=== PATIENT | female | born 1930 | race Caucasian/White ===

== ENCOUNTER 2017-03-18 08:30 | Inpatient (IN) | payer MEDICARE, BC ==
[2017-03-18 09:05] VITALS: BMI 17.6
[2017-03-24] MEDS ORDERED: CEFAZOLIN/Water 2 GM/20 ML SYRINGE ONE (08:08)
[2017-03-24] MEDS ORDERED: Tranexamic Acid 1,000 MG/100 ML BAG ONE ×2 (08:08→12:36)
[2017-03-24] MEDS ORDERED: diphenhydrAMINE 50 MG/ML VIAL IVP PRN (09:15)
[2017-03-24] MEDS ORDERED: Ondansetron HCl/PF 4 MG/2 ML Vial IVP PRN ×3 (09:15→12:19)
[2017-03-24] MEDS ORDERED: Promethazine HCl 25 MG/ML VIAL IM PRN ×2 (09:15→11:07)
[2017-03-24] MEDS ORDERED: Eucerin (Mineral Oil/Petrolatum,White) 30 gm Jar TOP PRN (09:15)
[2017-03-24] MEDS ORDERED: Zolpidem Tartrate 5 MG TAB PO PRN (09:15)
[2017-03-24] MEDS ORDERED: diphenhydrAMINE 25 MG CAP PO PRN ×2 (09:15→12:19)
[2017-03-24] MEDS ORDERED: Fentanyl/Bupivacaine 250 ML in Premix Bag 1 BAG EPIDURAL SCH (09:15)
[2017-03-24] MEDS ORDERED: HYDROcodone/Acetaminophen 5/325 mg Tablet PO PRN ×2 (09:15)
[2017-03-24] MEDS ORDERED: Naloxone HCl 0.4 mg/ml Vial IV PRN (09:15)
[2017-03-24] MEDS ORDERED: Naloxone HCl 0.4 mg/ml Vial IVP PRN (09:15)
[2017-03-24] MEDS ORDERED: traMADol HCl 50 MG TAB PO PRN ×3 (09:15→12:19)
[2017-03-24] MEDS ORDERED: diphenhydrAMINE 50 MG/ML VIAL IM PRN (09:15)
[2017-03-24] MEDS ORDERED: Promethazine HCl 25 MG SUPP PR PRN (09:15)
[2017-03-24] MEDS ORDERED: Neomycin-Polymyxin 1 ML AMP ONE ×2 (10:11)
[2017-03-24] MEDS ORDERED: Bupivacaine/Epinephrine 0.25% 30 ML VIAL ONE (10:22)
[2017-03-24] MEDS ORDERED: Fentanyl 100 MCG/2 ML VIAL ONE ×2 (10:24→13:06)
[2017-03-24] MEDS ORDERED: Promethazine HCl 25 MG/ML VIAL SLOW IVP PRN (11:07)
[2017-03-24] MEDS ORDERED: Acetaminophen/Codeine 30-300mg Tablet PO PRN (12:19)
[2017-03-24] MEDS ORDERED: Acetaminophen 325 MG TAB PO PRN (12:19)
[2017-03-24] MEDS ORDERED: Acetaminophen 1,000 MG in Premix Bag 1 BAG IVPB SCH (12:30)
[2017-03-24] MEDS ORDERED: Tranexamic Acid 1,000 MG in Sodium Chloride 0.9% 100 ML IVPB SCH (12:30)
[2017-03-24] MEDS ORDERED: Fentanyl/Bupivacaine 250 ML EPIDURAL ONE (12:50)
[2017-03-24] MEDS ORDERED: Morphine 2 mg/2ml in 0.9% NaCl PF SYRINGE SLOW IVP PRN (13:00)
[2017-03-24] MEDS ORDERED: Bupivacaine 0.25% HCL 30 ML VIAL ONE (13:01)
[2017-03-24] MEDS: Ketorolac Tromethamine 30 MG/ML VIAL IVP SCH ×3 (14:32→23:42)
[2017-03-24] MEDS: Sodium Chloride 0.9% 1,000 ML IV SCH (14:32)
--- NOTE | 2017-03-24 15:11 | RAD ---
TWO VIEWS RIGHT HIP: Date: 03-24-17 Comparison: None . History: Evaluate hip following arthroplasty. FINDINGS: Lateral cutaneous gerardo are present. There is a right total hip arthroplasty noted. There is post-o perative gas at the post-operative site. There is no evidence for hardware failure, fracture, or disl ocation. IMPRESSION: Findings consistent with recent right total hip arthroplasty. POS: [facility]
--- NOTE | 2017-03-24 15:21 | RAD ---
SINGLE AP VIEW OF LEFT HIP INTRAOPERATIVELY: DATE: 03/24/17. HISTORY: Hip fracture. FINDINGS: There are postsurgical changes related to placement of right total hip prosthesis. Acetabular compon ent as well as a femoral metallic devices noted in place. There is subcutaneous emphysema related to the postsurgical changes. IMPRESSION: Postsurgical changes related to placement of right total hip prosthesis. Correlation with intraopera tive findings is recommended. POS: [facility]
--- NOTE | 2017-03-24 15:43 | OP ---
DATE OF PROCEDURE: 03/24/2017 PREOPERATIVE DIAGNOSIS: Osteoarthritis, right hip. POSTOPERATIVE DIAGNOSIS: Osteoarthritis, right hip. PROCEDURE: Right total hip arthroplasty. ANESTHESIA: General. SURGEON: Juan Rubio M.D. COMMUNITY YOUTH SECRETARY: Nicolas Scott PA-C. COMPLICATIONS: None. CONDITION: Good. ESTIMATED BLOOD LOSS: 250 mL. DRAINS: None. TOURNIQUET: None. TECHNIQUE: Consent was obtained. The patient was taken to the operating room and placed in supine p osition. After adequate general anesthesia had been achieved, the patient was placed in a left later al decubitus position, axillary roll and hip positioner. The right hip was then examined and there w as approximately 1-2 cm shortening in the right lower extremity with approximately 10 degree flexion contracture of the hip. She had full flexion, abduction, rotation, and minor limitation. The right hip was then positioned, prepped and draped in usual sterile fashion. A limited posterolateral appro ach to the hip was performed. It was taken down to the subcutaneous tissues carefully exposing the g luteal fascia, this was split longitudinally. The piriformis short rotators were identified. Pirifo rmis was released from its posterior capsule and the posterior incision. Arthrotomy was performed. Hip dislocated without complication. The neck exposed and the head resected at appropriate level. T he femur was then prepared with sequential hand reamers and broaches up to a size 3. A size 3 trial was left in place and the acetabulum exposed. The labral tissue was debrided. The patient had compl ete chondral loss, but no significant erosive changes. Osteophytes removed and the reaming was start ed at 47 mm, it was taken up to 50 mm. A 50 mm Dynasty shell was then placed with two superior screw s. Good position and alignment was noted and excellent stability. The 15 degree liner was placed po sterior shortest neck with medium head. Hip was put through a range of motion. The patient had full flexion and extension. There was no significant instability through full range and no impingement. The radiographs showed good position and alignment of the implant, and the trials were then removed. The 15-degree liner was placed posterior superior and impacted. The size 3 Profemur Z stem was ins erted and the medium head was then impacted on the taper. Skin was reduced. Stability was excellent and leg lengths clinically equal. After copious irrigation and hemostasis obtained, the arthrotomy closed with #2 Mersilene and piriformis was also repaired with #2 Mersilene, the gluteal fascia with #2 Vicryl, the subcutaneous with 2-0 Vicryl, and the skin with gerardo. Sterile bulky dressing was a pplied and the patient was taken to recovery. Prognosis is good. GURINDER Wylie, was instrumental in positioning along with assisting in exposure and implantation of the total hip arthroplasty. He has specialized knowledge in joint arthroplasty and was beneficial an d safe execution of procedure.
[2017-03-24] MEDS ORDERED: Glycopyrrolate 0.2 MG/ML 5 ML SYRINGE ONE (16:14)
[2017-03-24] MEDS ORDERED: Propofol 200 MG/20 ML VIAL ONE (16:14)
[2017-03-24] MEDS ORDERED: Lidocaine 1% PF 5 ML VIAL ONE (16:14)
[2017-03-24] MEDS ORDERED: Ondansetron HCl/PF 4 MG/2 ML Vial ONE (16:14)
[2017-03-24] MEDS ORDERED: ePHEDrine/0.9% NaCl/PF SYRINGE 50 mg/10 ml ONE (16:14)
[2017-03-24] MEDS: CEFAZOLIN/Water 2 GM/20 ML SYRINGE SLOW IVP SCH ×2 (16:56→23:42)
--- NOTE | 2017-03-24 17:26 | CON ---
DATE OF CONSULTATION: 03/24/2017 REQUESTING PHYSICIAN: Juan Rubio M.D. PRIMARY CARE PHYSICIAN: Zoltan Sanchez M.D. REASON FOR CONSULTATION: Medical management, post right total hip arthroplasty. HISTORY OF PRESENT ILLNESS: Ms. Sharma is a very pleasant 86-year-old white female with history of dementia, hypertension, osteoarthritis, and depression who presents to the floor today postop from [facility] total hip arthroplasty by Dr. Rubio. She got a longstanding history of osteoarthritis, increasing pain and affecting her mobility and thus sent her for an elective right total hip arthroplasty done today. No new intraoperative complications. Postoperatively, she is very comfortable. She denies any chest pain, shortness of breath, no nausea or vomiting, no diarrhea or constipation. No fevers or chills. No cough or sputum production. No bleeding problems. She does have a fentanyl/bupivacaine pump in and appears comfortable at the moment. PAST MEDICAL HISTORY: 1. Dementia. 2. Hypertension, essential. 3. Osteoarthritis. 4. Depression. 5. Postmenopausal. PAST SURGICAL HISTORY: Hysterectomy more than 36 years ago, ovarian status unknown. HOME MEDICATIONS: 1. Aspirin 325 mg daily. 2. B12 1000 mcg. 3. Lisinopril 10 mg p.o. daily. 4. Namenda 2 mg p.o. daily. 5. Zoloft 100 mg p.o. daily. ALLERGIES: NKDA. FAMILY HISTORY: Negative for clotting or bleeding disorder. No immune dysfunction, no blood tumors. SOCIAL HISTORY: . She does not smoke, does not use drugs. Never used to either one. She do es have an occasional drink meaning 1-2 drinks 1 or 2 times a week. She does drink wine or rum and C elana. She has been to her of 36 years. He is at the bedside. Code status was discussed. She is a FULL CODE, she does have advanced directive and her is m edical power of divorce attorney. REVIEW OF SYSTEMS: A 10-point review of systems was performed, negative for all other systems except as stated per HPI. PHYSICAL EXAMINATION: VITAL SIGNS: Temperature current 97.0, pulse 66, blood pressure 98/64, respiratory rate 14, satting 94% on room air. GENERAL: She is awake. She is alert. She is oriented x3. She is a well-developed, well-nourished, thin elderly white female, appears to be in zero distress. HEENT: Normocephalic, atraumatic. Pupils equal, reactive bilaterally. Mucous membranes are moist, without visible lesions or thrush. NECK: Supple. There is no lymphadenopathy, JVD or thyromegaly. Normal carotid upstrokes without br uits. LUNGS: Clear to auscultation bilaterally. She has good air movement and symmetrical chest excursion . There are no wheezes, rales or rhonchi. No prolonged expiratory phase. CARDIOVASCULAR: She has normal S1, S2. No S3, S4. She has a quiet 2/6 systolic ejection murmur bes t heard over the right upper sternal border. There is no radiation. ABDOMEN: Soft, nontender, nondistended. No masses or organomegaly. EXTREMITIES: No cyanosis, no clubbing. No edema with 2+ peripheral pulses in dorsalis pedis and pos terior tibial arteries. SKIN: Warm, moist, and well perfused. She has a postop dressing over her right hip and an ice pack. This was not removed, but there is no bloody show or strike through. NEUROLOGIC: Cranial nerves II-XII are grossly intact. She has no focal deficits and 5/5 strength in all 4 extremities. MUSCULOSKELETAL: Normal to inspection. She is tender over the right hip. Deep palpation was not at tempted. The remainder of her joints appears uninflamed without any palpable effusions. LABORATORY DATA: Preop on 03/18/2017, her BMP is normal and CBC showed a white count of 5.3, hemoglo bin 11.5, hematocrit 34.1, platelets 241,000. INR is 1.0. Her GFR is calculated at 56. RADIOGRAPHIC STUDIES: She had a hip x-ray that shows her to be status post right total hip arthropla sty. ASSESSMENT AND PLAN: 1. Osteoarthritis, status post right total hip arthroplasty per Dr. Rubio. DVT prophylaxis per nd s team. 2. History of dementia, on Namenda, will continue. 3. Hypertension, lisinopril will continue. Watch renal function. 4. Osteoarthritis as above. 5. Depression, on Zoloft or sertraline. We will continue 100 mg daily. 6. Likely chronic kidney disease 3. Her GFR is 56 and she has a creatinine 0.95. Given her ratio i s calculated to GFR is less than 60, we will monitor kidney function very, very closely and adjust he r medicines as appropriate. Thank you very much for this consult. I will follow along with you.
[2017-03-24] MEDS: Cyanocobalamin (Vitamin B-12) 1,000 MCG TAB PO SCH (20:59)
[2017-03-25] MEDS: Sodium Chloride 0.9% 1,000 ML IV SCH ×2 (00:09→08:18)
[2017-03-25 06:16] LABS: Hematocrit 27.1 % (36.0-47.0); Mean Platelet Volume 7.5 fL (7.4-10.4); Red Blood Cell (RBC) Count 2.93 mill/uL (4.20-5.40); White Blood Cell (WBC) Count 7.7 thou/uL (4.8-10.8)
[2017-03-25 06:21] LABS: Anion Gap 8 mmol/L (10-20); BUN (Urea Nitrogen) 20 mg/dL (9.8-20.1); Calc. Creatinine Clearance 32 mL/min (70-130); Calcium 8.6 mg/dL (7.8-10.44); Carbon Dioxide 29 mmol/L (23-31); Chloride 106 mmol/L (98-107); Estimated GFR-MDRD 53
[2017-03-25] MEDS: Ketorolac Tromethamine 30 MG/ML VIAL IVP SCH ×4 (07:00→23:53)
[2017-03-25] MEDS: Lisinopril 10 MG TAB PO SCH ×2 (08:16→08:20)
[2017-03-25] MEDS: Ferrous Gluconate 324 MG TAB PO SCH ×2 (08:16→21:55)
[2017-03-25] MEDS: Senokot S 8.6-50 MG TAB PO SCH ×2 (08:16→21:55)
[2017-03-25] MEDS: Multivitamin W/ Minerals 1 TAB PO SCH (08:17)
[2017-03-25] MEDS: Aspirin 81 mg Enteric Coated Tablet PO SCH ×2 (08:17→21:55)
--- NOTE | 2017-03-25 13:14 | PDOC.PN ---
- Subjective Encounter Start Date: 03/25/17 Encounter Start Time: 10:[address] in [facility]. BP a little low today, lisinopril held. Colt CP or sOb, no N/V/d/C, no f/C. Denies dizziness, light headdedness. Hgb dropped from 11.5 to 8.7 10 point ROS performed and neg for all systems except as per HPI - Objective Resuscitation Status: full MAR Reviewed: Yes Vital Signs & Weight: Vital Signs (12 hours) Temp Pulse Resp BP BP Pulse Ox Pulse Ox 03/25/17 12:40 97.6 F 80 18 101/64 91 L 03/25/17 08:38 98/60 94 L 03/25/17 08:25 98.3 F 83 14 92/55 L 88 L 03/25/17 07:55 97.8 F 87 18 95 03/25/17 04:00 97.8 F 87 18 100/60 91 L Weight Admit Weight 106 lb Weight 106 lb I&O: 03/24/17 03/25/17 03/26/17 06:59 06:59 06:59 Intake Total 780.5 1572.5 Output Total 300 500 Balance 480.5 1072.5 Result Diagrams: 03/25/17 04:40 03/25/17 04:40 Radiology Reviewed by me: Yes EKG Reviewed by me: Yes Phys Exam - Physical Examination Constitutional: NAD HEENT: PERRLA, moist MMs, sclera anicteric, oral pharynx no lesions Neck: no nodes, no JVD, supple, full ROM Respiratory: no wheezing, no rales, no rhonchi, clear to auscultation bilateral Cardiovascular: RRR, no significant murmur, no rub Gastrointestinal: soft, non-tender, no distention, positive bowel sounds Musculoskeletal: no edema, pulses present Neurological: non-focal, normal sensation, moves all 4 limbs Lymphatic: no nodes Psychiatric: normal affect, A&O x 3 Skin: no rash, normal turgor, cap refill <2 seconds Dx/Plan (1) HTN (hypertension) Code(s): I10 - ESSENTIAL (PRIMARY) HYPERTENSION Status: Chronic Qualifiers: Hypertension type: essential hypertension Qualified Code(s): I10 - Essential (primary) hypertension Comment: home meds on hold today. (2) Dementia Code(s): F03.90 - UNSPECIFIED DEMENTIA WITHOUT BEHAVIORAL DISTURBANCE Status: Chronic Qualifiers: Dementia type: unspecified type Dementia behavioral disturbance: without behavioral disturbance Qualified Code(s): F03.90 - Unspecified dementia without behavioral disturbance Comment: on namenda. Continuing (3) CKD (chronic kidney disease) stage 3, GFR 30-59 ml/min Code(s): N18.3 - CHRONIC KIDNEY DISEASE, STAGE 3 (MODERATE) Status: Chronic Comment: previosuly undiagnosed (4) Status post total hip replacement, right Code(s): Z96.641 - PRESENCE OF RIGHT ARTIFICIAL HIP JOINT Status: Acute - Plan cont current plan of care, PT/OT, out of bed/ambulate * .
--- NOTE | 2017-03-25 14:36 | PQF ---
CLINICAL DOCUMENTATION IMPROVEMENT CLARIFICATION FORM: ICD-10 Updated PLEASE DO AN ADDENDUM TO THE PROGRESS NOTE WITH ANY DOCUMENTATION UPDATES OR ADDITIONS AND CARRY THROUGH TO DC SUMMARY. THANK YOU. DATE: 03/25 ATTN : DR. RUBIN MEADOWS Please exercise your independent, professional judgment in responding to the clarification form. Clinical indicators are provided on the bottom of this form for your review Please check appropriate box(s): BMI < 19.9 with associated diagnosis of: (check box (s)) [ ] Underweight [ ] Cachexia [ ] Other diagnosis [ ] Unable to determine For continuity of documentation, please document condition throughout progress notes and discharge summary. Thank You. BMI < 19 Under weight 19 - 24.9 Healthy 25.0 - 29.9 Slightly Overweight 30.0 - 34.9 Obese 35.0 - 39.9 Severely Obese 40.0 and Over Morbidly Obese CLINICAL INDICATORS - SIGNS / SYMPTOMS / LABS BMI: 17.6 RISK FACTORS: DEMENTIA ADVANCED AGE (86) S/P R TOTAL HIP ARTHROPLASTY TREATMENTS: NUTRITION ASSESSMENT FOR LOW BMI NUTRITION SUPPLEMENT (ENSURE ENLIVE BID) THANK YOU! Mary Carmen (This form is maintained as a part of the permanent medical record) 2014 [employer]. All Rights Reserved WILL ADDRESS IN PN TODAY [facility]/26/2017 [facility]
[2017-03-25] MEDS: Cyanocobalamin (Vitamin B-12) 1,000 MCG TAB PO SCH (21:55)
[2017-03-26] MEDS: Sodium Chloride 0.9% 1,000 ML IV SCH ×2 (01:43→14:56)
[2017-03-26 05:39] LABS: Hematocrit 26.8 % (36.0-47.0); Mean Platelet Volume 7.7 fL (7.4-10.4); White Blood Cell (WBC) Count 8.3 thou/uL (4.8-10.8)
[2017-03-26] MEDS: Ketorolac Tromethamine 30 MG/ML VIAL IVP SCH (08:33)
[2017-03-26] MEDS: Aspirin 81 mg Enteric Coated Tablet PO SCH (08:41)
[2017-03-26] MEDS: Ferrous Gluconate 324 MG TAB PO SCH (08:41)
[2017-03-26] MEDS: Multivitamin W/ Minerals 1 TAB PO SCH (08:42)
[2017-03-26] MEDS: Senokot S 8.6-50 MG TAB PO SCH (08:42)
[2017-03-26] MEDS ORDERED: Lisinopril 10 MG TAB PO SCH (09:00)
[2017-03-26] MEDS: Lisinopril 10 MG TAB PO SCH (09:50)
--- NOTE | 2017-03-26 12:12 | PDOC.PN ---
- Subjective Encounter Start Date: 03/26/17 Encounter Start Time: 09:00 Pt up to chair, wanting to go back to bed. Daughter at the bedside. Pt not eating well. NO f/C, no n/V/D/C. deneis pain. slept okay per pt, daughter refutes. BP has remained stable. no acute events 10 point ROS performed and neg for all systems except as above - Objective Resuscitation Status: FULL MAR Reviewed: Yes Vital Signs & Weight: Vital Signs (12 hours) Temp Pulse Resp BP BP Pulse Ox 03/26/17 11:37 97.8 F 83 14 111/66 93 L 03/26/17 09:50 114/65 03/26/17 09:48 114/65 03/26/17 08:22 97.0 F L 81 18 114/65 91 L 03/26/17 04:22 98.6 F 79 16 146/69 H 88 L 03/26/17 00:38 96 Weight Admit Weight 106 lb Weight 106 lb I&O: 03/25/17 03/26/17 03/27/17 06:59 06:59 06:59 Intake Total 780.5 2472.5 770 Output Total 300 1200 600 Balance 480.5 1272.5 170 Result Diagrams: 03/26/17 04:56 03/25/17 04:40 Radiology Reviewed by me: Yes EKG Reviewed by me: Yes Phys Exam - Physical Examination Constitutional: NAD thin and frail HEENT: PERRLA, moist MMs, sclera anicteric, oral pharynx no lesions Neck: no nodes, no JVD, supple, full ROM Respiratory: no wheezing, no rales, no rhonchi, clear to auscultation bilateral Cardiovascular: RRR, no rub TITO 2/6 at RUSB Gastrointestinal: soft, non-tender, no distention, positive bowel sounds Musculoskeletal: no edema, pulses present Neurological: non-focal, normal sensation, moves all 4 limbs Lymphatic: no nodes Psychiatric: normal affect Deviation from normal: alert, O X 2 Skin: no rash, normal turgor, cap refill <2 seconds Dx/Plan (1) HTN (hypertension) Code(s): I10 - ESSENTIAL (PRIMARY) HYPERTENSION Status: Chronic Qualifiers: Hypertension type: essential hypertension Qualified Code(s): I10 - Essential (primary) hypertension Comment: resume meds, BP good today (2) Dementia Code(s): F03.90 - UNSPECIFIED DEMENTIA WITHOUT BEHAVIORAL DISTURBANCE Status: Chronic Qualifiers: Dementia type: unspecified type Dementia behavioral disturbance: without behavioral disturbance Qualified Code(s): F03.90 - Unspecified dementia without behavioral disturbance Comment: on namenda. Continuing (3) CKD (chronic kidney disease) stage 3, GFR 30-59 ml/min Code(s): N18.3 - CHRONIC KIDNEY DISEASE, STAGE 3 (MODERATE) Status: Chronic Comment: previosuly undiagnosed (4) Status post total hip replacement, right Code(s): Z96.641 - PRESENCE OF RIGHT ARTIFICIAL HIP JOINT Status: Acute Comment: s/p R GER 03/24/2017. per Ortho. to Rehab at [facility] when arranged. - Plan cont current plan of care, PT/OT, out of bed/ambulate * .
[2017-03-26 15:48] VITALS: BP 107/67; TEMP 99
== END 2017-03-26 16:22 | DRG 470 ==
LOC: SURG A 03-24 07:15 → SJJU 03-24 15:43
PROVIDERS: ADMIT Orthopaedic Surgery; ATTEND Orthopaedic Surgery
PROC: 0SR904A Replacement of Right Hip Joint with Ceramic on Polyethylene Synthetic Substitute, Uncemented, Open Approach (ICD-10-PCS; principal; 2017-03-24)
DX: M16.11 Unilateral primary osteoarthritis, right hip (principal); F03.90 Unspecified dementia, unspecified severity, without behavioral disturbance, psychotic disturbance, mood disturbance, and anxiety; N18.3 Chronic kidney disease, stage 3 (moderate); I12.9 Hypertensive chronic kidney disease with stage 1 through stage 4 chronic kidney disease, or unspecified chronic kidney disease; F32.9 Major depressive disorder, single episode, unspecified
CPT/HCPCS: 36415; 80048; 85027; C1776; G8978-GP-CL; G8979-GP-CJ; G8987-GO-CL; G8988-GO-CI; J1885; J2001; J2405; J2704; J3010; S0020

== ENCOUNTER 2017-03-18 08:31 | Outpatient (CLI) | payer MEDICARE, BC ==
[2017-03-18 10:21] LABS: Hematocrit 34.4 % (36.0-47.0); Mean Platelet Volume 7.1 fL (7.4-10.4); Red Blood Cell (RBC) Count 3.77 mill/uL (4.20-5.40); White Blood Cell (WBC) Count 5.3 thou/uL (4.8-10.8)
[2017-03-18 10:39] LABS: Prothrombin Time 13.2 SEC (12.0-14.7)
[2017-03-18 10:50] LABS: Anion Gap 10 mmol/L (10-20); BUN (Urea Nitrogen) 21 mg/dL (9.8-20.1); Calc. Creatinine Clearance 0 mL/min (70-130); Calcium 9.8 mg/dL (7.8-10.44); Carbon Dioxide 29 mmol/L (23-31); Chloride 105 mmol/L (98-107); Estimated GFR-MDRD 56
== END 2017-03-18 08:32 | disposition home or self-care (01) ==
LOC: LABBT 08:31
PROVIDERS: ATTEND Orthopaedic Surgery
DX: Z01.818 Encounter for other preprocedural examination (principal); M16.11 Unilateral primary osteoarthritis, right hip
CPT/HCPCS: 80048; 85027; 85610; 85730; 86850; 86900; 86901; 87081

== ENCOUNTER 2017-05-12 12:03 | Emergency (ER) | payer MEDICARE, BC ==
[2017-05-12] MEDS ORDERED: Ondansetron ODT 4 MG TAB ONE (12:25)
[2017-05-12] MEDS ORDERED: Bupivacaine 0.5% 10 ML VIAL ONE (13:09)
--- NOTE | 2017-05-12 13:13 | RAD ---
RIGHT HIP 2 VIEWS: Date: 05/12/17 COMPARISON: 03/24/07. HISTORY: Patient tripped and fell on concrete. Wrist deformity. FINDINGS: Uncomplicated right hip arthroplasty. No perihardware lucency to suggest loosening. No fracture. IMPRESSION: Unremarkable right hip 2 views. POS: [facility]
--- NOTE | 2017-05-12 13:14 | RAD ---
ONE VIEW PELVIS: HISTORY: The patient tripped and fell. Pain. COMPARISON: None. FINDINGS: Uncomplicated and incompletely evaluated right hip arthroplasty. The bony pelvis is intact. The sac roiliac joints are patent and symmetric. The sacral ala are preserved. The contour of the left hip is maintained on this single projection. No fracture. Mild degenerative change of the left hip. Leftward curvature of the visualized lower lumbar spine. IMPRESSION: No bony pelvic fracture. POS: [facility]
--- NOTE | 2017-05-12 13:16 | RAD ---
THREE VIEWS LEFT WRIST: HISTORY: Fall. Pain. COMPARISON: None. FINDINGS: There is diffuse bone demineralization. Chronic changes in the first carpometacarpal joint space is noted. There is a distal radius fracture with dorsal angulation and impaction. There is associated soft tissue swelling and deformity. IMPRESSION: Distal radius fracture, as above. POS: [facility]
--- NOTE | 2017-05-12 13:18 | RAD ---
RIGHT HAND 3 VIEWS: Date: 05/12/17 HISTORY: Fall. Pain. Wrist deformity. COMPARISON: None. FINDINGS: There is evidence of multifocal erosive osteoarthritis. There is diffuse bone demineralization. There is chronic change and deformity of the trapezium and trapezoid bone. There is subluxation of the fir st carpometacarpal joint space. An acute fracture of the right hand bones is not appreciated. IMPRESSION: Chronic degenerative changes as above. No acute fracture. POS: [facility]
--- NOTE | 2017-05-12 14:35 | RAD ---
LEFT WRIST ONE VIEW: History: Post reduction. Comparison: Same day. FINDINGS: Single fluoroscopic image of the wrist demonstrates dorsal displacement and angulation impaction of t he distal radius fracture, not significantly improved. POS: [facility]
--- NOTE | 2017-05-12 15:41 | RAD ---
TWO VIEWS LEFT WRIST: Comparison: 05-12-17 at 2:12 p.m. History: Distal radius fracture status post reduction. FINDINGS: Two views of the left wrist shows slight improvement in alignment of the distal radius fracture. An o verlying splint obscures fine bony and soft tissue detail. IMPRESSION: Reduction of distal radius fracture. POS: [facility]
== END 2017-05-12 16:28 | disposition home or self-care (01) ==
LOC: ERS 12:03
DX: S52.502A Unspecified fracture of the lower end of left radius, initial encounter for closed fracture (principal); I10 Essential (primary) hypertension; F03.90 Unspecified dementia, unspecified severity, without behavioral disturbance, psychotic disturbance, mood disturbance, and anxiety; W17.89XA Other fall from one level to another, initial encounter
CPT/HCPCS: 25600; 72170; 96372; J2270; J3490; Q0162

== ENCOUNTER 2017-05-15 10:02 | Day surgery (SDC) | payer MEDICARE, BC ==
[2017-05-15 11:15] LABS: Hemoglobin 10.5 g/dL (12.0-16.0); Mean Corpuscular HGB CONC 32.2 g/dL (32.0-36.0); Mean Corpuscular Hemoglobin 29.1 pg (27.0-31.0); Mean Corpuscular Volume 90.5 fl (81.0-99.0); Mean Platelet Volume 7.6 fL (7.4-10.4); Platelet Count 240 thou/uL (130-400); RBC Distribution Width 13.9 % (11.5-14.5); Red Blood Cell (RBC) Count 3.61 mill/uL (4.20-5.40); White Blood Cell (WBC) Count 8.6 thou/uL (4.8-10.8)
[2017-05-15] MEDS ORDERED: Fentanyl 100 MCG/2 ML VIAL ONE ×2 (11:17→14:40)
[2017-05-15 11:30] LABS: Anion Gap 11 mmol/L (10-20); BUN (Urea Nitrogen) 20 mg/dL (9.8-20.1); Calc. Creatinine Clearance 0 mL/min (70-130); Calcium 9.7 mg/dL (7.8-10.44); Carbon Dioxide 27 mmol/L (23-31); Chloride 103 mmol/L (98-107); Estimated GFR-MDRD 65; Glucose 99 mg/dL (83-110); Potassium 4.2 mmol/L (3.5-5.1); Sodium 137 mmol/L (136-145)
[2017-05-15] MEDS ORDERED: Bupivacaine HCl 0.5%/Epinephrine 1:200,000/PF 30 ml Vial ONE (14:08)
[2017-05-15] MEDS ORDERED: CEFAZOLIN/Water 2 GM/20 ML SYRINGE ONE (14:37)
[2017-05-15] MEDS ORDERED: PROPOFOL 200 MG/20 ML VIAL ONE (14:38)
[2017-05-15] MEDS ORDERED: Lidocaine 1% PF 5 ML VIAL ONE (14:38)
[2017-05-15] MEDS ORDERED: Midazolam HCl 2 mg/2 ml Vial ONE (14:40)
--- NOTE | 2017-05-15 19:34 | RAD ---
LEFT WRIST TWO VIEWS: 05/15/17 HISTORY: 86-year-old female status post ORIF distal left radius. Two portable fluoroscopic spot images demonstrate three Steinmann pin stabilizing a comminuted fractu re of the distal radius with improved position and alignment from the prereduction study. IMPRESSION: Improved position and alignment of a comminuted distal radial fracture stabilized with three Paul n pins. POS: [facility]
--- NOTE | 2017-05-15 22:41 | OP ---
DATE OF SURGERY: 05/15/2017. PREOPERATIVE DIAGNOSIS: Left extraarticular distal radius fracture. POSTOPERATIVE DIAGNOSIS: Left extraarticular distal radius fracture. SURGICAL PROCEDURE: Closed reduction and percutaneous pin fixation of left distal radius. ANESTHESIA: General. SURGEON: Poli Haque MD TOURNIQUET TIME: Zero. IMPLANTS: 0.062 K-wires x3. COMPLICATIONS: None. DRAINS: None. SPECIMEN: None. OUTCOME: Satisfactory. INDICATIONS: The patient is an 86-year-old lady status post trip and fall landing on an outstretched left hand. She was seen and evaluated in the emergency room and found to have a displaced distal ra dius fracture with approximately 50 degrees of dorsal angulation. The patient now presents to my off ice and upon evaluation found to have gross deformity, and after discussion, we decided to proceed wi th an attempt to closed reduction and pinning in hopes of improving the alignment and providing a tom sonable jainism of anatomy for activities of normal daily living. Informed consent has been obta ined. I believe all questions were answered. DESCRIPTION OF PROCEDURE: The patient was brought to the operating room and a time-out performed, fo llowed by induction of general anesthesia. She was positioned supine on the OR table with the arm he ld out on an arm board. Next, a closed reduction was performed with longitudinal traction, recreatio n of the deformity, and then palmar flexion. AP and lateral C-arm images were then obtained that liset wed jainism of normal radial inclination, neutral tilt, and jainism of radial length. Next, a 0.062 K-wire was passed percutaneously into the radial styloid and obliquely across the fracture. This was then followed by 2 additional K-wires dorsally through the fourth extensor compartment captu ring the dorsal rim of the articular surface and extending obliquely across the fracture line into th e more proximal radial diaphysis. This resulted in reasonably good stability of the fracture and goo d alignment. As such, the 2 pins were cut proud of the skin and bent at right angles. They were the n dressed with Xeroform gauze and a sugar-tong splint was applied to the wrist. With the completion of this, the patient was transferred to recovery room in stable condition. There were no complicatio ns. She tolerated the procedure well.
--- NOTE | 2017-07-14 21:53 | EKG ---
Test Reason : SURGERY Blood Pressure : / mmHG Vent. Rate : 081 BPM Atrial Rate : 081 BPM P-R Int : 176 ms QRS Dur : 088 ms QT Int : 378 ms P-R-T Axes : 049 043 061 degrees QTc Int : 439 ms Normal sinus rhythm with sinus arrhythmia Normal ECG Confirmed by BENITO RUTHERFORD M.D. ([id number]) on 07/14/2017 9:52:48 PM Referred By: CAITLIN Confirmed By:BENITO RUTHERFORD M.D.
== END 2017-05-15 17:52 | disposition home or self-care (01) ==
LOC: SDC 10:02
PROVIDERS: ATTEND Orthopaedic Surgery
PROC: 0PSJ34Z Reposition Left Radius with Internal Fixation Device, Percutaneous Approach (ICD-10-PCS; principal; 2017-05-15)
DX: S52.532A Colles' fracture of left radius, initial encounter for closed fracture (principal); I10 Essential (primary) hypertension; E78.00 Pure hypercholesterolemia, unspecified; Z79.82 Long term (current) use of aspirin; Z79.899 Other long term (current) drug therapy; Z96.641 Presence of right artificial hip joint; Z90.711 Acquired absence of uterus with remaining cervical stump; W01.0XXA Fall on same level from slipping, tripping and stumbling without subsequent striking against object, initial encounter
CPT/HCPCS: 76000; 80048; 85027; 93005; 93010; J0670; J2001; J2250; J2704; J3010

== ENCOUNTER 2017-05-17 06:34 | Emergency (ER) | payer MEDICARE, BC ==
[2017-05-17 07:30] LABS: #Eosinphils 0.1 thou/uL (0.0-0.7); #Lymphocytes 1.7 thou/uL (1.20-3.40); #Monocytes 1.6 thou/uL (0.11-0.59); #Neutrophils 12.4 thou/uL (1.40-6.50); %Basophils 0.3 % (0.0-1.0); %Eosinophils 0.7 % (0.0-10.0); %Lymphocytes 10.8 % (21.0-51.0); %Monocytes 9.8 % (0.0-10.0); %Neutrophils 78.5 % (42.0-75.0); Hemoglobin 10.3 g/dL (12.0-16.0); Mean Corpuscular HGB CONC 32.7 g/dL (32.0-36.0); Mean Corpuscular Hemoglobin 29.2 pg (27.0-31.0); Mean Corpuscular Volume 89.1 fl (81.0-99.0); Mean Platelet Volume 7.2 fL (7.4-10.4); Platelet Count 200 thou/uL (130-400); RBC Distribution Width 13.7 % (11.5-14.5); Red Blood Cell (RBC) Count 3.52 mill/uL (4.20-5.40); White Blood Cell (WBC) Count 15.8 thou/uL (4.8-10.8)
[2017-05-17 07:55] LABS: Bilirubin Negative (Negative); Blood, Urine Negative (Negative); Clarity CLEAR (Clear); Glucose, Urine (Dipstick) Negative (Negative); Leukocyte Small (Negative); Nitrite Negative (Negative); Protein, Urine (Dipstick) Trace mg/dL (Neg-Trace); Specific Gravity, Urine 1.025 (1.002-1.036); Urobilinogen 0.2 mg/dL (0.2-1.0)
[2017-05-17 07:58] LABS: Bacteria/HPF None Seen HPF (None Seen); Hyaline Casts/LPF 4-6 HYALINE CAST LPF (0-3 Hyaline); Pathc Cast-AUWi Flag 1.35 (0-2.49); RBC/HPF 0-3 HPF (0-3); Squamous Epithelial 0-3 HPF (0-3)
[2017-05-17 08:21] LABS: Renal Epithelial 0-3 HPF (0-3); Transitional Epithelial 0-3 HPF (0-3)
[2017-05-17 08:30] LABS: Alkaline Phosphatase 80 U/L (40-150)
[2017-05-17 08:31] LABS: AST (SGOT) 11 U/L (5-34); Albumin 3.1 g/dL (3.4-4.8); Anion Gap 13 mmol/L (10-20); BUN (Urea Nitrogen) 17 mg/dL (9.8-20.1); Bilirubin, Total 0.8 mg/dL (0.2-1.2); Calc. Creatinine Clearance 0 mL/min (70-130); Calcium 8.5 mg/dL (7.8-10.44); Carbon Dioxide 21 mmol/L (23-31); Chloride 107 mmol/L (98-107); Estimated GFR-MDRD 78; Globulin 2.5 g/dL (2.4-3.5); Glucose 106 mg/dL (83-110); Potassium 3.8 mmol/L (3.5-5.1); Protein, Total 5.6 g/dL (6.0-8.3); Sodium 137 mmol/L (136-145)
[2017-05-17 08:33] LABS: ALT (SGPT) 7 U/L (8-55)
--- NOTE | 2017-05-17 10:46 | RAD ---
CHEST 1 VIEW: HISTORY: Fever. Recent surgery. FINDINGS: No comparison. The cardiac silhouette is magnified by projection. Pulmonary vasculature is unremark able. Mediastinum is midline. Lungs are hyperinflated. There is no lobar consolidation or evidence of pneumothorax. IMPRESSION: Chronic obstructive pulmonary disease. POS: [facility]
== END 2017-05-17 15:12 | disposition home or self-care (01) ==
LOC: ERS 06:34
DX: E86.0 Dehydration (principal); N39.0 Urinary tract infection, site not specified; I10 Essential (primary) hypertension; F03.90 Unspecified dementia, unspecified severity, without behavioral disturbance, psychotic disturbance, mood disturbance, and anxiety
CPT/HCPCS: 36415; 51701; 71045; 80053; 81003; 81015; 83605; 85025; 87086; 96360; 96361; A4353

== ENCOUNTER 2018-10-17 22:20 | Observation (INO) | payer MEDICARE, BC ==
--- NOTE | 2018-10-17 23:34 | RAD ---
Exam: Chest one view HISTORY:Chest pain Comparison: To 318 FINDINGS: Cardiac silhouette:Normal heart size. Atherosclerosis of the aorta. Pulmonary vessels: Normal Costophrenic angles: Clear LUNGS: Hyperinflation. Chronic changes. No mass. No consolidation. Pneumothorax: None Osseous abnormalities: None IMPRESSION: 1. No acute cardiopulmonary process. 2. Hyperinflation. COPD. 3. Atherosclerosis.
[2018-10-18 00:15] LABS: #Basophils 0.1 thou/uL (0.0-0.2); #Lymphocytes 0.9 thou/uL (1.20-3.40); #Monocytes 0.8 thou/uL (0.11-0.59); #Neutrophils 13.2 thou/uL (1.40-6.50); %Basophils 0.3 % (0.0-1.0); %Eosinophils 0.2 % (0.0-10.0); %Monocytes 5.1 % (0.0-10.0); %Neutrophils 88.4 % (42.0-75.0); Mean Corpuscular HGB CONC 31.9 g/dL (32.0-36.0); Mean Corpuscular Hemoglobin 29.6 pg (27.0-31.0); Mean Corpuscular Volume 92.5 fL (78.0-98.0); Mean Platelet Volume 7.5 fL (7.4-10.4); Platelet Count 215 thou/uL (130-400); RBC Distribution Width 13.7 % (11.5-14.5)
[2018-10-18 00:37] LABS: ALT (SGPT) 9 U/L (8-55); AST (SGOT) 19 U/L (5-34); Alkaline Phosphatase 68 U/L (40-150); Anion Gap 17 mmol/L (10-20); BUN (Urea Nitrogen) 19 mg/dL (9.8-20.1); Bilirubin, Total 0.9 mg/dL (0.2-1.2); Calc. Creatinine Clearance 0 mL/min (70-130); Calcium 9.1 mg/dL (7.8-10.44); Carbon Dioxide 20 mmol/L (23-31); Chloride 105 mmol/L (98-107); Estimated GFR-MDRD 64; Globulin 2.5 g/dL (2.4-3.5); Glucose 120 mg/dL (83-110); Lipase 13 U/L (8-78); Potassium 4.1 mmol/L (3.5-5.1); Protein, Total 6.5 g/dL (6.0-8.3); Sodium 138 mmol/L (136-145)
[2018-10-18 02:22] LABS: Bilirubin Negative (Negative); Blood, Urine Negative (Negative); Clarity Clear (Clear); Glucose, Urine (Dipstick) Normal (Negative); Leukocyte Negative Leu/uL (Negative); Nitrite Negative (Negative); Protein, Urine (Dipstick) Negative (Neg-Trace); Urobilinogen Normal mg/dL (Less than 2)
[2018-10-18] MEDS ORDERED: Sodium Chloride 0.45% 1,000 ML IV SCH (07:15)
[2018-10-18] MEDS ORDERED: Ondansetron PF 4 MG/2 ML Vial IVP PRN ×2 (07:16→07:23)
[2018-10-18] MEDS ORDERED: Ondansetron ODT 4 MG TAB SL PRN (07:16)
[2018-10-18] MEDS ORDERED: Ondansetron ODT 4 MG TAB PO PRN (07:23)
[2018-10-18] MEDS ORDERED: Calcium Carbonate 500 MG ChewTAB PO PRN (07:23)
[2018-10-18] MEDS ORDERED: Diabetic Tussin 200 MG/10 ML UDCUP PO PRN (07:23)
[2018-10-18] MEDS ORDERED: Loratadine 10 MG TAB PO PRN (07:23)
[2018-10-18] MEDS ORDERED: Cepastat Lozenges 1 LOZ PO PRN (07:23)
[2018-10-18] MEDS ORDERED: HYDROcodone/Acetaminophen 5/325 mg Tablet PO PRN (07:23)
[2018-10-18] MEDS ORDERED: Acetaminophen 325 MG TAB PO PRN (07:23)
[2018-10-18] MEDS ORDERED: Zolpidem Tartrate 5 MG TAB PO PRN (07:23)
[2018-10-18] MEDS ORDERED: Loperamide HCl 2 MG CAP PO PRN (07:23)
[2018-10-18] MEDS ORDERED: hydrALAZINE 20 MG/ML VIAL SLOW IVP PRN (07:23)
[2018-10-18] MEDS ORDERED: Senokot S 8.6-50 MG TAB PO PRN (07:23)
[2018-10-18] MEDS ORDERED: Bisacodyl 10 MG SUPP PR PRN (07:23)
[2018-10-18] MEDS ORDERED: Sodium Chloride 0.65% Nasal 44 ML BOT EA NARE PRN (07:23)
[2018-10-18] MEDS ORDERED: Sodium Chloride 0.9% 1,000 ML IV SCH (07:30)
[2018-10-18 07:55] VITALS: BMI 15.4
--- NOTE | 2018-10-18 08:31 | CT ---
PRELIMINARY REPORT/[facility]/EMERGENCY AFTER HOURS PROCEDURE: EXAM: CT Head Without Contrast EXAM DATE/TIME: 10/18/2018 1:04 AM CLINICAL HISTORY: 87 years old, female; Alteration of consciousness; Syncope and collapse; Patient HX: F85 reports to E D C/O syncope, after standing up from using toilet. Pt's was helping her up, when she became shaky and altered, then synopsized (new onset). PT was unresponsive for 2 minutes, and was asp irating and foaming at mouth. PT continued to aspirate after becoming ano4. TECHNIQUE: Imaging protocol: Axial computed tomography images of the head without contrast. COMPARISON: No relevant prior studies available. FINDINGS: Brain: There is no evidence for acute stroke or bleed. There is global and diffuse parenchymal volume loss. There are scattered foci of decreased attenuation in the periventricular and subcortical white matter, nonspecific, but most consistent with chronic small vessel ischemic changes in patient of thi s age. Ventricles / cisterns / extra-axial spaces: There is no hydrocephalus, midline shift, or acute extra-axial fluid collection. There is no sulcal effacement. Sinuses: No findings of acute sinusitis or suspicious sinus mass. Bone: No acute fracture or displacement. Impression: Chronic changes without evidence for acute, intracranial pathology. Thank you for allowing us to participate in the care of your patient. Dictated and Authenticated by: Deb Gillis MD 10/18/2018 1:30 AM Central Time ([place] & [place]) FINAL REPORT: CT BRAIN WITH AND WITHOUT CONTRAST: HISTORY: Altered mental status COMPARISON: None. FINDINGS: Findings and impression are concordant with the preliminary report. IMPRESSION: No acute intracranial abnormality. Transcribed Date/Time: 10/18/2018 8:37 AM
[2018-10-18] MEDS ORDERED: Lisinopril 10 MG TAB PO SCH (09:00)
[2018-10-18] MEDS ORDERED: Famotidine 20 MG TAB PO SCH (09:00)
[2018-10-18] MEDS ORDERED: Prevnar 13-Val Conj/PF 0.5 ML SYRINGE IM ONE ×2 (10:45→15:00)
--- NOTE | 2018-10-18 11:39 | ULT ---
ULTRASOUND DOPPLER DUPLEX CAROTID: DATE: 10/18/2018 HISTORY: 87-year-old female status post syncope. TECHNIQUE: Grayscale, color-flow, and spectral analysis, of major arteries of neck. FINDINGS: Intimal thickening throughout bilateral common carotid arteries. Mild calcified plaque at origins of bilateral internal carotids at carotid bulbs. Highest peak systolic velocities in internal carotid arteries: R ICA: 60 cm/s. L ICA: 55 cm/s. ICA/CCA ratios: Right: 0.8. Left: 0.8. Vertebral artery flow is antegrade bilaterally. IMPRESSION: 1. No hemodynamically significant stenosis. 2. Mild atherosclerosis at origins of internal carotid arteries bilaterally.
[2018-10-18] MEDS ORDERED: Cyanocobalamin (Vitamin B-12) 1,000 MCG TAB PO SCH (21:00)
--- NOTE | 2018-10-19 02:19 | PDOC.EVN ---
Event Note - Event Note Event Note: Patient had 12 beats of SVT overnight, patient has an ECHO scheduled for later today.
[2018-10-19 05:33] LABS: #Eosinphils 0.4 thou/uL (0.0-0.7); #Lymphocytes 1.7 thou/uL (1.20-3.40); #Monocytes 0.7 thou/uL (0.11-0.59); #Neutrophils 8.1 thou/uL (1.40-6.50); %Basophils 0.2 % (0.0-1.0); %Eosinophils 3.2 % (0.0-10.0); %Lymphocytes 15.9 % (21.0-51.0); %Monocytes 6.6 % (0.0-10.0); Hemoglobin 11.5 g/dL (12.0-16.0); Mean Corpuscular HGB CONC 32.9 g/dL (32.0-36.0); Mean Corpuscular Hemoglobin 29.3 pg (27.0-31.0); Mean Corpuscular Volume 88.9 fL (78.0-98.0); Mean Platelet Volume 7.7 fL (7.4-10.4); Platelet Count 193 thou/uL (130-400); RBC Distribution Width 13.3 % (11.5-14.5); Red Blood Cell (RBC) Count 3.93 mill/uL (4.20-5.40)
[2018-10-19 06:03] LABS: Anion Gap 9 mmol/L (10-20); BUN (Urea Nitrogen) 13 mg/dL (9.8-20.1); Calc. Creatinine Clearance 34 mL/min (70-130); Calcium 8.9 mg/dL (7.8-10.44); Carbon Dioxide 28 mmol/L (23-31); Chloride 104 mmol/L (98-107); Estimated GFR-MDRD 66; Glucose 103 mg/dL (83-110); Potassium 3.4 mmol/L (3.5-5.1); Sodium 138 mmol/L (136-145)
[2018-10-19] MEDS ORDERED: Potassium Chloride 20 MEQ TAB PO SCH (07:00)
--- NOTE | 2018-10-19 07:54 | HP ---
PRIMARY CARE PHYSICIAN: Zoltan Sanchez MD REASON FOR ADMISSION: Syncope. HISTORY OF PRESENT ILLNESS: This is an 87-year-old female, who lives at home with her . The patient requires monitoring by her whenever she walks. The patient is able to walk by herself. Last night, the patient was going to toilet, and when she was trying to stand, she passed out for few minutes. As per the patient's , the patient was unresponsive at that time and she was also not breathing, but after few minutes, she recovered. At that time, the patient had one episode of vomiting. The patient's tried to help her to sit her on bed. At that point, another time, she had vomiting. Each time vomiting she was having clear liquid. She did not have any generalized tonic-clonic seizure type of activity. She became responsive when she recovered consciousness. The patient has underlying dementia, but the patient is able to do all routine activities of life by herself with assistance. She did not have any fever or chills. She did not have any UTI symptoms. She was constipated last week and the patient's gave her stool softener yesterday and she had good bowel movement this morning. She denies any chest pain, palpitation or shortness of breath. She does not have any lower extremity edema, orthopnea or PND. In the emergency room, the patient had chest x-ray, which was normal. CT brain was negative. Routine blood test was also unremarkable. Cardiogram was also unremarkable. The patient was clinically appeared dehydrated. The patient is being admitted to observation floor for further evaluation. REVIEW OF SYSTEMS: CONSTITUTIONAL: Negative for weight loss or gain, ability to conduct usual activities. SKIN: Negative for rash, itching. EYES: Negative for double vision, pain. ENT/MOUTH: Negative for nose bleeding, neck stiffness, pain, tenderness. CARDIOVASCULAR: Negative for palpitations, dyspnea on exertion, orthopnea. RESPIRATORY: Negative for shortness of breath, wheezing, cough, hemoptysis, fever or night sweats. GASTROINTESTINAL: Negative for poor appetite, abdominal pain, heartburn, nausea , vomiting, constipation, or diarrhea. GENITOURINARY: Negative for urgency, frequency, dysuria, nocturia. MUSCULOSKELETAL: Negative for pain, swelling. NEUROLOGIC/PSYCHIATRIC: Negative for anxiety, depression. ALLERGY/IMMUNOLOGIC: Negative for skin rash, bleeding tendency. Please see my HPI for pertinent positives and negatives. All other review of systems reviewed and negative except as mentioned in the HPI. PAST MEDICAL HISTORY: Alzheimer's type of dementia. PAST PSYCHIATRIC HISTORY: Anxiety and depression. PAST SURGICAL HISTORY: Hysterectomy, right hip replacement, and left wrist surgery. SOCIAL HISTORY: The patient is , lives at home with her . No history of tobacco, alcohol or illicit drug abuse. She is able to ambulate with assistance. She does not have any extra help at home. FAMILY HISTORY: No family history of CAD, CVA or cancer. ALLERGIES: PENICILLIN. CURRENT HOME MEDICATIONS: 1. Aspirin 81 mg daily. 2. Vitamin B12 1000 mcg p.o. at bedtime. 3. Namenda 10 mg twice daily. 4. Zoloft 100 mg p.o. daily. EMERGENCY ROOM COURSE: Reviewed. PHYSICAL EXAMINATION: VITAL SIGNS: On arrival, blood pressure 161/92, pulse 73, respiratory rate 25, temperature 98.2, saturation 95% on room air, and weight 45.3 kg. GENERAL: The patient currently appears malnourished. HEENT: Head; normocephalic, atraumatic. Eyes; eyeball shrunken. ENT; oropharynx within normal limits, dry-appearing mucous membranes, no oral lesion, no pharyngeal erythema, no exudate. NECK: Supple. No JVD. No meningeal signs of irritation. LUNGS: Clear to auscultation without any rhonchi or rales. CARDIAC: S1 and S2 appears regular without any significant murmur. No gallop. No rub. ABDOMEN: Soft. Bowel sounds present. Nontender. Nondistended. No organomegaly. No mass. No suprapubic tenderness. BACK: Unremarkable. No CVA tenderness. EXTREMITIES: Upper extremities, passive movement of all joints are normal. Lower extremities, no edema. Good distal pulsation. SKIN: No skin rash. HEMATOLOGICAL SYSTEM: No lymphadenopathy. NEUROLOGIC: The patient is moving all 4 limbs. She is following all commands. No focal neurological deficit noted. Motor and sensation appears grossly normal. PSYCHIATRIC: Normal affect. SIGNIFICANT LABORATORY DATA: CT brain based on my review, no acute intracranial process. Chest x-ray based on my review, no acute cardiopulmonary process. CBC; WBC 15.0, hemoglobin 13.0, and platelet 215. BMP; sodium 138, potassium 4.1, chloride 105, carbon dioxide 20, anion gap 17, BUN 19, creatinine 0.85, glucose 120, calcium 9.1, and magnesium 2.0. LFT; AST 19, ALT 9, and alkaline phosphatase 68. Albumin 4.0. BNP 91.2. Lipase 13. Troponin less than 0.010. Urinalysis normal. ASSESSMENT/PLAN: 1. Syncope, most likely related with orthostatic hypotension. The patient's orthostatic vitals checked and they are positive. The patient will need to continue IV fluid. We will also do echocardiography and carotid Doppler for full workup. We will monitor on telemetry floor to rule out any arrhythmia. 2. Hypertension. We will continue lisinopril 10 mg p.o. daily. We will watch for any further drop in her blood pressure while in hospital. 3. Alzheimer dementia. We will continue Namenda 10 mg p.o. twice daily. 4. Anxiety and depression. We will continue Zoloft 100 mg p.o. daily. 5. Moderate protein-calorie malnutrition. The patient will need supplementation with Ensure t.i.d. 6. Dehydration and volume depletion. The patient will require IV fluid and we will repeat labs tomorrow. 7. Leukocytosis, unclear etiology, but I am suspecting stress response. The patient does not have any clear obvious signs of infection. 8. Deep venous thrombosis prophylaxis, SCD boots. 9. Gastrointestinal prophylaxis, Pepcid 20 mg p.o. b.i.d. CODE STATUS: The patient is DNR. The patient's is surrogate decision maker. This was discussed with the patient and her at bedside. DISPOSITION PLAN: The patient may need home health upon discharge. We will continue PT while in hospital. Job ID: [id number] [facility]
[2018-10-19] MEDS ORDERED: Famotidine 20 MG TAB PO SCH (09:00)
[2018-10-19] MEDS ORDERED: Aspirin 81 mg Enteric Coated Tablet PO SCH (09:00)
--- NOTE | 2018-10-19 11:03 | DIS ---
DATE OF ADMISSION: 10/18/2018 DATE OF DISCHARGE: 10/19/2018 DISCHARGE DISPOSITION: Home with Home Health. PRIMARY CARE PHYSICIAN: Dr. Zoltan Sanchez. DISCHARGE DIAGNOSES: 1. Dehydration. 2. Hypokalemia. 3. Syncope. SECONDARY DISCHARGE DIAGNOSES: 1. Moderate protein-calorie malnutrition. 2. Hypertension. 3. Dementia. 4. Chronic kidney disease stage 3. 5. Anxiety and depression. PRIMARY PROCEDURE/OPERATION: None. RADIOLOGICAL INVESTIGATION: Chest x-ray, normal. CT of brain, negative. Carotid Doppler, normal. Echocardiography, result pending. SIGNIFICANT LABORATORY DATA: Hemoglobin 11.5. Creatinine 0.82, potassium 3.4. LFT normal. Cardiac enzyme negative. Urinalysis unremarkable. DISCHARGE MEDICATIONS: 1. Aspirin 81 mg daily. 2. Vitamin B12 of 1000 mcg p.o. at bedtime. 3. Namenda 10 mg twice daily. 4. Zoloft 100 mg p.o. daily. 5. Metoprolol tartrate 25 mg p.o. b.i.d. CONTRAINDICATION: None. CODE STATUS: DNR. INPATIENT RIVER PILOT: None. ALLERGIES: PENICILLIN. DISCHARGE PLAN: Posthospital, the patient will follow up with primary care physician in 1 week. HOSPITAL COURSE: An 87-year-old female, who was admitted by me. Please see my HPI for further details. The patient had episode of syncope at home. Initial electrocardiogram was unremarkable. CT of brain and chest x-ray were normal. She was vitals talbert stable. We observed her and we found that she had orthostatic hypotension, that was related with her volume depletion. This patient has poor p.o. intake and she was not drinking enough. While in hospital, we gave her IV fluid. Her blood pressure has been improved. She had 1 episode of transient SVT, which was asymptomatic. Her blood pressure is also high and that is why we decided to start metoprolol on her at discharge. Echocardiography result is pending, but carotid Doppler and CT of brain were normal. The patient has been taken care by her . We arranged Home Health to extra provide help at home. The patient will follow up with primary care physician. Potassium was replaced on the day of discharge. I have seen and examined the patient at bedside today. I spoke with the patient's at bedside. Her examination has been not changed. She is vitals talbert stable. The patient is medically stable for discharge today. Job ID: [id number]
--- NOTE | 2018-10-19 11:56 | PDOC.PN ---
- Subjective Encounter Start Date: 10/19/18 Encounter Start Time: 10:50 -: old records requested/rev Patient seen and examined. No new complaints. No overnight events - Objective Resuscitation Status - Order Detail: 10/18/18 09:52 Resuscitation Status Routine Resuscitation Status: DNAR: NO Resuscitation Discussed with: discussed with pt and MAR Reviewed: Yes Vital Signs & Weight: Vital Signs (12 hours) Temp Pulse Resp BP BP Pulse Ox 10/19/18 07:12 97.3 F L 76 14 161/76 H 95 10/19/18 04:59 98.4 F 78 16 141/72 H 95 Weight Weight 95 lb 12.8 oz I&O: 10/18/18 10/19/18 10/20/18 06:59 06:59 06:59 Intake Total 1886 Output Total 1 Balance 1885 Result Diagrams: 10/19/18 04:56 10/19/18 04:56 Radiology Reviewed by me: Yes EKG Reviewed by me: Yes Phys Exam - Physical Examination Constitutional: NAD HEENT: PERRLA, moist MMs, sclera anicteric Neck: no JVD, supple Respiratory: no wheezing, no rales, no rhonchi Cardiovascular: RRR, no significant murmur, no rub Gastrointestinal: soft, non-tender, no distention, positive bowel sounds Musculoskeletal: no edema, pulses present Neurological: non-focal, normal sensation, moves all 4 limbs Lymphatic: no nodes Psychiatric: normal affect, A&O x 3 Skin: no rash, normal turgor Dx/Plan (1) Dehydration Code(s): E86.0 - DEHYDRATION Status: Acute (2) Hypokalemia Code(s): E87.6 - HYPOKALEMIA Status: Acute (3) Syncope Code(s): R55 - SYNCOPE AND COLLAPSE Status: Acute (4) Anxiety and depression Code(s): F41.9 - ANXIETY DISORDER, UNSPECIFIED; F32.9 - MAJOR DEPRESSIVE DISORDER, SINGLE EPISODE, UNSPECIFIED Status: Chronic (5) CKD (chronic kidney disease) stage 3, GFR 30-59 ml/min Code(s): N18.3 - CHRONIC KIDNEY DISEASE, STAGE 3 (MODERATE) Status: Chronic Comment: previosuly undiagnosed (6) Dementia Code(s): F03.90 - UNSPECIFIED DEMENTIA WITHOUT BEHAVIORAL DISTURBANCE Status: Chronic Qualifiers: Comment: on namenda. Continuing (7) HTN (hypertension) Code(s): I10 - ESSENTIAL (PRIMARY) HYPERTENSION Status: Chronic Qualifiers: Comment: resume meds, BP good today (8) Protein-calorie malnutrition, moderate Code(s): E44.0 - MODERATE PROTEIN-CALORIE MALNUTRITION Status: Chronic - Plan cont current plan of care * medication reviewed as below * symptomatic treatment * see discharge kvngy. Review of Systems - Review of Systems ENT: negative: Ear Pain, Ear Discharge, Nose Pain, Nose Discharge, Nose Congestion, Mouth Pain, Mouth Swelling, Throat Pain, Throat Swelling, Other Respiratory: negative: Cough, Dry, Shortness of Breath, Hemoptysis, SOB with Excertion, Pleuritic Pain, Sputum, Wheezing Cardiovascular: negative: chest pain, palpitations, orthopnea, paroxysmal nocturnal dyspnea, edema, light headedness, other Gastrointestinal: negative: Nausea, Vomiting, Abdominal Pain, Diarrhea, Constipation, Melena, Hematochezia, Other Genitourinary: negative: Dysuria, Frequency, Incontinence, Hematuria, Retention , Other Musculoskeletal: negative: Neck Pain, Shoulder Pain, Arm Pain, Back Pain, Hand Pain, Leg Pain, Foot Pain, Other Skin: negative: Rash, Lesions, Vinny, Bruising, Other - Medications/Allergies Allergies/Adverse Reactions: Allergies Allergy/AdvReac Type Severity Reaction Status Date / Time Penicillins Allergy Verified 10/18/18 08:25 Medications: Current Medications Acetaminophen (Tylenol) 650 mg PO Q4H PRN PRN Reason: Headache/Fever/Mild Pain (1-3) Hydrocodone Bitart/Acetaminophen ([place]er 5/325) 1 tab PO Q4H PRN PRN Reason: Moderate Pain (4-6) Aspirin (Ecotrin) 81 mg PO DAILY [facility] Last Admin: 10/19/18 09:32 Dose: 81 mg Bisacodyl (Dulcolax) 10 mg MA DAILYPRN PRN PRN Reason: Constipation Calcium Carbonate (Tums) 1,000 mg PO Q4H PRN PRN Reason: Heartburn or Indigestion Cyanocobalamin (Vitamin B-12) 1,000 mcg PO HS [facility] Last Admin: 10/18/18 20:32 Dose: 1,000 mcg Famotidine (Pepcid) 20 mg PO DAILY [facility] Last Admin: 10/19/18 09:32 Dose: 20 mg Guaifenesin (Robitussin Sf) 200 mg PO Q4H PRN PRN Reason: Cough Hydralazine HCl (Apresoline) 10 mg SLOW IVP Q4H PRN PRN Reason: SBP > 180 and HR < 70 Loperamide HCl (Imodium) 2 mg PO PRN PRN PRN Reason: Diarrhea/Loose Stools Loratadine (Claritin) 10 mg PO DAILYPRN PRN PRN Reason: Sinus Symptoms Memantine (Namenda) 10 mg PO BID [facility] Last Admin: 10/19/18 09:32 Dose: 10 mg Metoprolol Tartrate (Lopressor) 25 mg PO BID [facility] Ondansetron HCl (Zofran Odt) 4 mg PO Q6H PRN PRN Reason: Nausea/Vomiting Ondansetron HCl (Zofran) 4 mg IVP Q6H PRN PRN Reason: Nausea/Vomiting Senna/Docusate Sodium (Senokot S) 2 tab PO BIDPRN PRN PRN Reason: Constipation Sertraline HCl (Zoloft) 100 mg PO DAILY [facility] Last Admin: 10/19/18 09:33 Dose: 100 mg Sodium Chloride ([place] Nasal [place] 0.65%) 0 ml EA NARE QIDPRN PRN PRN Reason: Nasal Congestion Sodium Chloride (Flush - Normal Saline) 10 ml IVF Q12HR [facility] Sodium Chloride (Flush - Normal Saline) 10 ml IVF PRN PRN PRN Reason: Saline Flush Throat Lozenges (Cepastat Lozenges) 1 kishan PO Q2H PRN PRN Reason: Sore Throat Zolpidem Tartrate (Ambien) 5 mg PO HSPRN PRN PRN Reason: Insomnia
[2018-10-19 15:46] VITALS: BP 152/74; TEMP 98.2
[2018-10-19] MEDS ORDERED: Metoprolol Tartrate 25 MG TAB PO SCH (21:00)
== END 2018-10-19 18:24 | disposition home health service (06) ==
LOC: ERS 22:20 → 2SW 10-18 02:10
PROVIDERS: ADMIT Internal Medicine; ATTEND Internal Medicine
DX: I95.1 Orthostatic hypotension (principal); E87.6 Hypokalemia; E86.0 Dehydration; G30.9 Alzheimer's disease, unspecified; F02.80 Dementia in other diseases classified elsewhere, unspecified severity, without behavioral disturbance, psychotic disturbance, mood disturbance, and anxiety; F41.8 Other specified anxiety disorders; I12.9 Hypertensive chronic kidney disease with stage 1 through stage 4 chronic kidney disease, or unspecified chronic kidney disease; N18.3 Chronic kidney disease, stage 3 (moderate); E44.0 Moderate protein-calorie malnutrition; Z68.1 Body mass index [BMI] 19.9 or less, adult; Z66 Do not resuscitate; Z79.82 Long term (current) use of aspirin; Z79.899 Other long term (current) drug therapy; Z88.0 Allergy status to penicillin; Z98.890 Other specified postprocedural states
CPT/HCPCS: 51701; 70450; 71045; 80048; 80053; 81003; 83690; 83735; 83880; 84484; 85025 ×2; 90670; 93005; 93306; 93880; 96360; 96361; 97116; 97139 ×2; 99285; G0009; G0378 ×2; 36415; 90471; A4353

== ENCOUNTER 2018-12-01 12:29 | Inpatient (IN) | payer MEDICARE, BC ==
[2018-12-01 13:56] LABS: #Eosinphils 0.2 thou/uL (0.0-0.7); #Lymphocytes 1.6 thou/uL (1.20-3.40); #Neutrophils 9.5 thou/uL (1.40-6.50); %Basophils 0.2 % (0.0-1.0); %Eosinophils 1.6 % (0.0-10.0); %Lymphocytes 12.8 % (21.0-51.0); %Neutrophils 77.4 % (42.0-75.0); Hemoglobin 12.7 g/dL (12.0-16.0); Mean Corpuscular HGB CONC 33.1 g/dL (32.0-36.0); Mean Corpuscular Hemoglobin 29.3 pg (27.0-31.0); Mean Corpuscular Volume 88.2 fL (78.0-98.0); Mean Platelet Volume 7.6 fL (7.4-10.4); Platelet Count 214 thou/uL (130-400); Red Blood Cell (RBC) Count 4.33 mill/uL (4.20-5.40); White Blood Cell (WBC) Count 12.3 thou/uL (4.8-10.8)
[2018-12-01 14:16] LABS: ALT (SGPT) 8 U/L (8-55); AST (SGOT) 14 U/L (5-34); Albumin 4.1 g/dL (3.4-4.8); Alkaline Phosphatase 74 U/L (40-150); Anion Gap 15 mmol/L (10-20); BUN (Urea Nitrogen) 16 mg/dL (9.8-20.1); Bilirubin, Total 0.7 mg/dL (0.2-1.2); CK (CPK) 31 U/L (29-168); Calc. Creatinine Clearance 0 mL/min (70-130); Calcium 9.4 mg/dL (7.8-10.44); Carbon Dioxide 26 mmol/L (23-31); Chloride 101 mmol/L (98-107); Estimated GFR-MDRD 54; Globulin 2.7 g/dL (2.4-3.5); Glucose 130 mg/dL (83-110); Lipase 17 U/L (8-78); Potassium 3.6 mmol/L (3.5-5.1); Protein, Total 6.8 g/dL (6.0-8.3); Sodium 138 mmol/L (136-145)
--- NOTE | 2018-12-01 14:25 | RAD ---
Chest AP view INDICATION: Fever COMPARISON: October 17, 2018 FINDINGS: Lungs:Stable COPD change. No airspace consolidation. Cardiac silhouette pulmonary vasculature:The cardiomediastinal silhouette appears within normal limit s. Pleural spaces:No pleural effusion or pneumothorax is demonstrated. Upper abdomen:No abnormality seen. Osseous structures: No acute osseous abnormality. Additional findings:There is diffuse osteopenia IMPRESSION: No acute cardiopulmonary abnormality.
[2018-12-01 14:56] LABS: Bilirubin Negative (Negative); Blood, Urine Negative (Negative); Clarity Clear (Clear); Glucose, Urine (Dipstick) Normal (Negative); Leukocyte Negative Leu/uL (Negative); Nitrite Negative (Negative); Protein, Urine (Dipstick) Negative (Neg-Trace); Urobilinogen Normal mg/dL (Less than 2)
--- NOTE | 2018-12-01 17:45 | HP ---
PRIMARY CARE PHYSICIAN: Dr. Sanchez. CHIEF COMPLAINT: "I am concerned that my 's legs are getting weak." HISTORY OF PRESENT ILLNESS: Ms. Sharma is a pleasant 87-year-old female, who has fairly advanced dementia, so therefore she is unable to give me any history. She was actually recently discharged from the hospital about a month ago. At that time, she was diagnosed with mild dehydration and orthostatic hypotension secondary to that, and she was hydrated and released from the hospital. Her says that she was doing well until Friday when she started indicating that her legs were hurting, but he says he was not really sure what was going on. He was concerned about a hip replacement that she had a few years back on the right side. He noticed that she was not eating well also and normally she gets up to go to the bathroom, but she could not get up yesterday. On the day of admission, she was staying in bed pretty much all day long. He tried to get her up to help her to the bathroom, but she could not. They have a home health nurse who comes in twice a week and takes vital signs. The nurse came in, and her temperature was a 100.6, and she recommended that they come into the ER for evaluation. When I see her, she is lying on the stretcher. She looks pleasant. She is smiling. She cannot really offer any history, but when asked if she is hurting anywhere, she will pause for a minute, look a bit confused, and then, just say no. Her says he did not know if some of her symptoms could be constipation because she has not had a bowel movement in several days, but due to her dementia, it is hard to tell. REVIEW OF SYSTEMS: This is unreliable due to her advanced dementia, therefore unobtainable. PAST MEDICAL HISTORY: Significant for just dementia. PAST SURGICAL HISTORY: She has had a hysterectomy, a right hip replacement, and left wrist surgery. ALLERGIES: TO PENICILLIN. SOCIAL HISTORY: She is a nonsmoker and nondrinker. She lives with her , and her code status is DNAR. FAMILY HISTORY: Father had a stroke. Mother had dementia as well. CURRENT MEDICATIONS: Include, 1. Sertraline 100 mg daily. 2. Aspirin 81 mg daily. 3. Vitamin B12 100 mcg daily. 4. Memantine 10 mg once a day. PHYSICAL EXAMINATION: GENERAL: She is alert, but disoriented. She is well developed and well nourished. VITAL SIGNS: Blood pressure is 126/73, heart rate of 78, respiratory rate of 16, temperature is 99.6. HEENT: Pupils are equal, round, and reactive. Extraocular muscles are intact. Her sclerae are anicteric. Throat, there is no erythema, no exudates. Her tympanic membranes are pearly herring. There is a slight amount of fluid behind the right drum, but no bulging. NECK: No adenopathy. No bruits. LUNGS: Clear to auscultation. There is no wheezing, no rales, no rhonchi. CARDIOVASCULAR: She has a normal S1 and S2. There is no S3 or S4. No murmurs, clicks, or rubs. ABDOMEN: Obese. It is soft. It is nontender, nondistended. Positive for bowel sounds. There is no rebound, no guarding. EXTREMITIES: There is no clubbing or cyanosis. No edema. She does have some significant muscle wasting. She has no pain with internal and external rotation on the right hip. There is no edema. No erythema or warmth to the area. NEUROLOGIC: Her cranial nerves 2 through 12 are intact. SKIN AND INTEGUMENT: No skin changes. No rash. LABORATORY DATA: White blood cell count is 12.3, hemoglobin is 12.7, hematocrit is 38.2, and platelet count is 214. Sodium is 138, potassium is 3.6, chloride is 101, CO2 is 26, BUN of 16, creatinine is 0.98, glucose is 130. Lactic acid is 2.7. Urinalysis was negative. IMAGING STUDIES: Chest x-ray, the heart size was normal. There was no evidence of any infiltrates or effusions. This is by my reading. ASSESSMENT AND PLAN: This is a pleasant 87-year-old female, who presents to the emergency room with lower extremity weakness, low-grade temperature, as well as an elevated white blood cell count. I suspect this is likely due to a viral syndrome as there is no obvious source of infection. She already seems to be clinically improved. She will be placed in observation. We will hold off on any antibiotics at this time and just monitor her for any signs of fever or instability in her vital signs. Get a Physical Therapy evaluation, and hopefully, she can be discharged home within the next day or two. Job ID: [id number]
[2018-12-01 17:57] LABS: Lactic Acid 1.9 mmol/L (0.5-2.2)
[2018-12-01] MEDS ORDERED: Ondansetron ODT 4 MG TAB SL PRN (19:02)
[2018-12-01] MEDS ORDERED: Ondansetron PF 4 MG/2 ML Vial IVP PRN (19:02)
[2018-12-01] MEDS ORDERED: Acetaminophen 325 MG TAB PO PRN (19:06)
[2018-12-01] MEDS ORDERED: Sodium Chloride 0.9% 1,000 ML IV SCH (19:15)
[2018-12-01 19:29] VITALS: BMI 16.0
[2018-12-01] MEDS: Dextrose 5 % And 0.9 % NaCl 1,000 ML IV SCH (19:55)
[2018-12-01] MEDS: Metoprolol Tartrate 25 MG TAB PO SCH (20:53)
[2018-12-01] MEDS: Famotidine 20 MG TAB PO SCH (20:53)
[2018-12-01] MEDS ORDERED: Cyanocobalamin (Vitamin B-12) 1,000 MCG TAB PO SCH (21:00)
[2018-12-02 05:25] LABS: #Eosinphils 0.6 thou/uL (0.0-0.7); #Lymphocytes 1.8 thou/uL (1.20-3.40); #Monocytes 0.8 thou/uL (0.11-0.59); #Neutrophils 6.3 thou/uL (1.40-6.50); %Basophils 0.5 % (0.0-1.0); %Eosinophils 6.1 % (0.0-10.0); %Lymphocytes 18.7 % (21.0-51.0); %Monocytes 8.1 % (0.0-10.0); %Neutrophils 66.6 % (42.0-75.0); Hemoglobin 12.6 g/dL (12.0-16.0); Mean Corpuscular Hemoglobin 28.7 pg (27.0-31.0); Mean Corpuscular Volume 89.6 fL (78.0-98.0); Mean Platelet Volume 7.8 fL (7.4-10.4); Platelet Count 208 thou/uL (130-400); White Blood Cell (WBC) Count 9.4 thou/uL (4.8-10.8)
[2018-12-02 05:27] LABS: Anion Gap 12 mmol/L (10-20); BUN (Urea Nitrogen) 9 mg/dL (9.8-20.1); Calc. Creatinine Clearance 34 mL/min (70-130); Calcium 9.4 mg/dL (7.8-10.44); Carbon Dioxide 26 mmol/L (23-31); Chloride 106 mmol/L (98-107); Estimated GFR-MDRD 67; Glucose 99 mg/dL (83-110); Potassium 3.4 mmol/L (3.5-5.1); Sodium 141 mmol/L (136-145)
[2018-12-02] MEDS: Dextrose 5 % And 0.9 % NaCl 1,000 ML IV SCH (06:33)
[2018-12-02] MEDS ORDERED: Potassium Chloride 20 MEQ TAB PO SCH (08:00)
[2018-12-02] MEDS: Metoprolol Tartrate 25 MG TAB PO SCH (08:44)
[2018-12-02] MEDS: Famotidine 20 MG TAB PO SCH (08:45)
[2018-12-02] MEDS ORDERED: Aspirin 81 mg Enteric Coated Tablet PO SCH (09:00)
[2018-12-02 16:23] VITALS: BP 125/72; TEMP 97.5
--- NOTE | 2018-12-02 16:56 | PDOC.HOSPP ---
- Subjective Encounter Date: 12/02/18 Encounter Time: 15:00 Subjective: Ms. Sharma was seen today in follow-up of sepsis syndrome. She appears much better today. - Objective Vital Signs & Weight: Vital Signs (12 hours) Temp Pulse Resp BP Pulse Ox 12/02/18 16:22 97.5 F L 69 20 125/72 94 L 12/02/18 12:00 97.9 F 67 18 174/99 H 96 12/02/18 08:00 97.5 F L 68 20 163/80 H 98 Weight Admit Weight 93 lb 8 oz Weight 93 lb 8 oz I&O: 12/01/18 12/02/18 12/03/18 06:59 06:59 06:59 Intake Total 977 720 Balance 977 720 Result Diagrams: 12/02/18 04:56 12/02/18 04:56 ROS - Medication Medications: Active Medications Generic Name Dose Route Start Last Admin Trade Name Freq PRN Reason Stop Dose Admin Aspirin 81 mg 12/02/18 09:00 12/02/18 08:44 Ecotrin PO 81 mg DAILY MAN Administration Cyanocobalamin 1,000 mcg 12/01/18 21:00 12/01/18 20:53 Vitamin B-12 PO 1,000 mcg HS MAN Administration Dextrose/Sodium Chloride 1,000 mls @ 75 mls/hr 12/01/18 19:06 12/02/18 06:33 D5 0.9% Ns IV 1,000 mls .[id number] MAN Administration Memantine 10 mg 12/01/18 21:00 12/02/18 08:44 Namenda PO 10 mg BID MAN Administration Metoprolol Tartrate 25 mg 12/01/18 21:00 12/02/18 08:44 Lopressor PO 25 mg BID MAN Administration Sertraline HCl 100 mg 12/02/18 09:00 12/02/18 08:44 Zoloft PO 100 mg DAILY MAN Administration - Exam Eye: PERRL, anicteric sclera Heart: RRR, no murmur, no gallops, no rubs, normal peripheral pulses Respiratory: CTAB, no wheezes, no rales, no ronchi, normal chest expansion Gastrointestinal: soft, non-tender, non-distended, normal bowel sounds Extremities: no cyanosis, no clubbing, no edema Hosp A/P (1) SIRS (systemic inflammatory response syndrome) Code(s): R65.10 - SIRS OF NON-INFECTIOUS ORIGIN W/O ACUTE ORGAN DYSFUNCTION Status: Acute (2) Viral syndrome Status: Acute (3) Dementia Code(s): F03.90 - UNSPECIFIED DEMENTIA WITHOUT BEHAVIORAL DISTURBANCE Status: Chronic Qualifiers: (4) Protein-calorie malnutrition, moderate Code(s): E44.0 - MODERATE PROTEIN-CALORIE MALNUTRITION Status: Chronic - Plan * SIRS- suspected to be due to a viral syndrome * She is stable for discharge home * Overall prognosis is guarded due to her advanced dementia
[2018-12-03] MEDS ORDERED: Famotidine 20 MG TAB PO SCH (09:00)
--- NOTE | 2018-12-05 13:39 | EKG ---
Test Reason : WEAKNESS Blood Pressure : / mmHG Vent. Rate : 075 BPM Atrial Rate : 075 BPM P-R Int : 000 ms QRS Dur : 078 ms QT Int : 394 ms P-R-T Axes : 000 057 064 degrees QTc Int : 439 ms Normal sinus rhythm Normal ECG Confirmed by KRISTA VAUGHAN, MINI ([id number]), newspaper editor PAU KUO ([id number]) on 12/05/2018 1:39:30 PM Referred By: KRISTA Confirmed By:MINI VELASCO MD
== END 2018-12-02 19:25 | disposition home or self-care (01) | DRG 866 ==
LOC: ERS 12:29 → T4-B 15:29
PROVIDERS: ADMIT Internal Medicine; ATTEND Internal Medicine
DX: B34.9 Viral infection, unspecified (principal); E44.0 Moderate protein-calorie malnutrition; R65.10 Systemic inflammatory response syndrome (SIRS) of non-infectious origin without acute organ dysfunction; Z68.1 Body mass index [BMI] 19.9 or less, adult; F03.90 Unspecified dementia, unspecified severity, without behavioral disturbance, psychotic disturbance, mood disturbance, and anxiety; Z96.641 Presence of right artificial hip joint; Z66 Do not resuscitate; Z90.710 Acquired absence of both cervix and uterus; Z88.0 Allergy status to penicillin
CPT/HCPCS: 36415; 51701; 71045; 80048; 80053; 81003; 82550; 83605; 83690; 83880; 84484; 85025; 87040; 93005; 96361; 96365; J1956